=== PATIENT | female | born 1995 | race Hispanic/Latino ===

== ENCOUNTER 2022-07-12 18:21 | Emergency (ER) | payer OTHER ==
[~2022-07-12] VITALS: Ht 160 cm; Wt 86.4 kg
[2022-07-12 18:34] VITALS: BP 137/69
[2022-07-12 18:46] VITALS: BP 124/78
[2022-07-12 19:00] VITALS: BP 131/77
[2022-07-12] MEDS ORDERED: PENICILLN VK500 MG PO (19:01)
[2022-07-12] MEDS ORDERED: HYDROCO/APAP1 TA9 PO (19:02)
[2022-07-12 19:16] VITALS: BP 124/61
[2022-07-12 19:26] VITALS: BP 124/61
== END 2022-07-12 19:26 | disposition home or self-care (01) ==
LOC: ED 18:21
DX: K04.7 Periapical abscess without sinus (principal); K02.9 Dental caries, unspecified; M84.68XA Pathological fracture in other disease, other site, initial encounter for fracture